=== PATIENT | female | born 1980 | race Caucasian/White ===

== ENCOUNTER 2021-08-31 11:00 | Outpatient (RCR) | payer OTHER, SELFPAY ==
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
== END 2021-08-31 14:03 | disposition home or self-care (01) ==
LOC: ANHOT 11:00
DX: S52.502D Unspecified fracture of the lower end of left radius, subsequent encounter for closed fracture with routine healing (principal); S62.002D Unspecified fracture of navicular [scaphoid] bone of left wrist, subsequent encounter for fracture with routine healing
CPT/HCPCS: 97018; 97110; 97165